=== PATIENT | female | born 1950 | race Caucasian/White ===

== ENCOUNTER → 2016-07-17 | Outpatient (REF) | payer BC | END | disposition home or self-care (01) | LOC: M SFHCSACK 07:54 | PROVIDERS: ATTEND Nurse Practitioner Family | DX: E78.5 Hyperlipidemia, unspecified (principal); E55.9 Vitamin D deficiency, unspecified ==

== ENCOUNTER → 2016-10-16 | Outpatient (REF) | payer BC ==
[2016-10-16 16:13] LABS: ALBUMIN 3.8 GM/DL (3.2-5.2); ALBUMIN/GLOBULIN RATIO 1.15 (1.00-1.93); BILIRUBIN,TOTAL 0.4 MG/DL (0.2-1.0); CALCIUM LEVEL 8.8 MG/DL (8.8-10.2); CREATININE FOR GFR 1.18 MG/DL (0.55-1.02); GLOMERULAR FILTRATION RATE 49.2 (>45); POTASSIUM SERUM 4.2 MEQ/L (3.5-5.1); TOTAL PROTEIN 7.1 GM/DL (6.4-8.2)
== END ==
LOC: M SFHCSACK 08:14
PROVIDERS: ATTEND Physician Assistant
DX: E78.2 Mixed hyperlipidemia (principal); K21.9 Gastro-esophageal reflux disease without esophagitis; E83.51 Hypocalcemia

== ENCOUNTER → 2016-10-23 | Outpatient (CLI) | payer BC ==
--- NOTE | 2016-10-23 14:56 | REPMRS ---
Patient History The patient states she has not had a clinical breast exam in over a year. Patient is postmenopausal. Family history of colorectal cancer in paternal grandmother at age 50 or over and breast cancer in daughter at age 42. Cyst aspiration of both breasts. Digital Woman Screen Mammo: October 23, 2016 - Exam #: [id number] Bilateral CC and MLO view(s) were taken. Technologist: Danielle Malloy, Technologist Prior study comparison: April 13, 2014, bilateral bilat screen digital mammo, performed at [facility] ([facility]). FINDINGS: The breast tissue is heterogeneously dense. This may lower the sensitivity of mammography. There has been no change in the appearance of the mammogram from the prior studies. There is a moderate amount of residual fibroglandular tissue which is fairly symmetric. There is no interval development of dominant mass, areas of architectural distortion, or clustered microcalcification typical of malignancy. ASSESSMENT: BI-RADS/ACR category 1 mammogram. Negative. Recommendation Routine screening mammogram in 1 year (for women over age 40). This mammogram was interpreted with the aid of an FDA-approved computer-aided dectection system. Electronically Signed By: Nader Norris MD 10/23/16 [id number]
== END ==
LOC: M WHC 13:59
PROVIDERS: ATTEND Family Medicine
DX: Z12.31 Encounter for screening mammogram for malignant neoplasm of breast (principal); Z78.0 Asymptomatic menopausal state; Z80.3 Family history of malignant neoplasm of breast; Z80.0 Family history of malignant neoplasm of digestive organs

== ENCOUNTER → 2017-07-26 | Outpatient (REF) | payer BC ==
[2017-07-26 14:34] LABS: BASO # 0.1 10^3/uL (0.0-0.2); BASO % 1.3 % (0.0-1.0); EOS # 0.2 10^3/uL (0.0-0.50); EOS % 2.2 % (0.0-3.0); HEMOGLOBIN 13.7 g/dl (12.0-16.0); IMMATURE GRANULOCYTE % 0.1 % (0-3.0); LYMPH # 1.5 10^3/uL (1.5-4.5); LYMPH % 22.3 % (24.0-44.0); MEAN CORPUSCULAR HEMOGLOBIN 30.8 pg (27.0-33.0); MEAN CORPUSCULAR HGB CONC 32.6 g/dl (32.0-36.5); MEAN CORPUSCULAR VOLUME 94.4 fl (80.0-96.0); MONO # 0.4 10^3/uL (0.0-0.8); MONO % 6.1 % (0.0-5.0); NEUTROPHILS # 4.5 10^3/uL (1.8-7.7); PLATELET COUNT, AUTOMATED 227 10^3/uL (150-450); RED BLOOD COUNT 4.45 10^6/uL (4.00-5.40); RED CELL DISTRIBUTION WIDTH 12.1 % (11.5-14.5); WHITE BLOOD COUNT 6.7 10^3/uL (4.0-10.0)
[2017-07-26 14:50] LABS: TOTAL 25(OH) VITAMIN D 30.9 NG/ML (30.0-100.0)
[2017-07-26 15:29] LABS: ALBUMIN 3.9 GM/DL (3.2-5.2); ALBUMIN/GLOBULIN RATIO 1.18 (1.00-1.93); ALKALINE PHOSPHATASE 52 U/L (45-117); ALT/SGPT 26 U/L (12-78); ANION GAP 8 MEQ/L (8-16); AST/SGOT 17 U/L (7-37); BILIRUBIN,TOTAL 0.7 MG/DL (0.2-1.0); BLOOD UREA NITROGEN 18 MG/DL (7-18); CALCIUM LEVEL 8.7 MG/DL (8.8-10.2); CARBON DIOXIDE LEVEL 29 MEQ/L (21-32); CHLORIDE LEVEL 106 MEQ/L (98-107); CHOLESTEROL LEVEL 204 MG/DL (<200); CREATININE FOR GFR 1.07 MG/DL (0.55-1.30); FREE T4 0.87 NG/DL (0.76-1.46); GLUCOSE, FASTING 83 MG/DL (70-100); HDL CHOLESTEROL 62 MG/DL (>40); LDL CHOLESTEROL 105.8 MG/DL (<100); NON-HDL-C 142 MG/DL; POTASSIUM SERUM 4.1 MEQ/L (3.5-5.1); SODIUM LEVEL 143 MEQ/L (136-145); TOTAL PROTEIN 7.2 GM/DL (6.4-8.2); TRIGLYCERIDES LEVEL 181 MG/DL (<150)
== END ==
LOC: M SFHCSACK 08:03
DX: I10 Essential (primary) hypertension (principal); E78.2 Mixed hyperlipidemia; Z13.29 Encounter for screening for other suspected endocrine disorder; E55.9 Vitamin D deficiency, unspecified

== ENCOUNTER → 2017-11-04 | Outpatient (REF) | payer BC ==
[2017-11-04 13:39] LABS: BASO # 0.1 10^3/uL (0.0-0.2); BASO % 0.9 % (0.0-1.0); EOS # 0.1 10^3/uL (0.0-0.50); HEMATOCRIT 41.7 % (36.0-47.0); HEMOGLOBIN 13.7 g/dl (12.0-15.5); IMMATURE GRANULOCYTE % 0.2 % (0-3.0); LYMPH # 1.6 10^3/uL (1.5-4.5); LYMPH % 24.8 % (24.0-44.0); MEAN CORPUSCULAR HEMOGLOBIN 31.4 pg (27.0-33.0); MEAN CORPUSCULAR HGB CONC 32.9 g/dl (32.0-36.5); MEAN CORPUSCULAR VOLUME 95.4 fl (80.0-96.0); MONO # 0.6 10^3/uL (0.0-0.8); MONO % 8.5 % (0.0-5.0); NEUTROPHILS # 4.1 10^3/uL (1.8-7.7); NEUTROPHILS % 63.6 % (36.0-66.0); PLATELET COUNT, AUTOMATED 222 10^3/uL (150-450); RED BLOOD COUNT 4.37 10^6/uL (4.00-5.40); RED CELL DISTRIBUTION WIDTH 12.2 % (11.5-14.5); WHITE BLOOD COUNT 6.5 10^3/uL (4.0-10.0)
[2017-11-04 13:58] LABS: ALBUMIN 3.9 GM/DL (3.2-5.2); ALBUMIN/GLOBULIN RATIO 1.15 (1.00-1.93); ALKALINE PHOSPHATASE 52 U/L (45-117); ALT/SGPT 27 U/L (12-78); ANION GAP 5 MEQ/L (8-16); AST/SGOT 16 U/L (7-37); BILIRUBIN,TOTAL 0.5 MG/DL (0.2-1.0); BLOOD UREA NITROGEN 18 MG/DL (7-18); CARBON DIOXIDE LEVEL 29 MEQ/L (21-32); CHLORIDE LEVEL 107 MEQ/L (98-107); CHOLESTEROL LEVEL 198 MG/DL (<200); CHOLESTEROL RISK RATIO 3.666 (<5); CREATININE FOR GFR 1.13 MG/DL (0.55-1.30); GLOMERULAR FILTRATION RATE 51.6 (>45); GLUCOSE, FASTING 87 MG/DL (70-100); HDL CHOLESTEROL 54 MG/DL (>40); LDL CHOLESTEROL 102.2 MG/DL (<100); NON-HDL-C 144 MG/DL; POTASSIUM SERUM 4.4 MEQ/L (3.5-5.1); SODIUM LEVEL 141 MEQ/L (136-145); TOTAL PROTEIN 7.3 GM/DL (6.4-8.2); TRIGLYCERIDES LEVEL 209 MG/DL (<150)
== END ==
LOC: M SFHCPLAZ 09:13
DX: I10 Essential (primary) hypertension (principal); E78.2 Mixed hyperlipidemia; D53.9 Nutritional anemia, unspecified
CPT/HCPCS: 80053

== ENCOUNTER → 2018-07-26 | Outpatient (CLI) | payer MEDICARE ==
[2018-07-26 12:59] LABS: BASO # 0.1 10^3/uL (0.0-0.2); BASO % 1.6 % (0.0-1.0); EOS # 0.2 10^3/uL (0.0-0.50); HEMATOCRIT 41.2 % (36.0-47.0); HEMOGLOBIN 13.7 g/dl (12.0-15.5); LYMPH % 30.8 % (24.0-44.0); MEAN CORPUSCULAR HEMOGLOBIN 30.9 pg (27.0-33.0); MEAN CORPUSCULAR HGB CONC 33.3 g/dl (32.0-36.5); MONO # 0.5 10^3/uL (0.0-0.8); MONO % 7.1 % (0.0-5.0); NEUTROPHILS # 3.6 10^3/uL (1.8-7.7); NEUTROPHILS % 57.3 % (36.0-66.0); PLATELET COUNT, AUTOMATED 231 10^3/uL (150-450); RED BLOOD COUNT 4.43 10^6/uL (4.00-5.40); WHITE BLOOD COUNT 6.3 10^3/uL (4.0-10.0)
[2018-07-26 13:14] LABS: ALBUMIN 3.8 GM/DL (3.2-5.2); BILIRUBIN,TOTAL 0.6 MG/DL (0.2-1.0); CALCIUM LEVEL 8.9 MG/DL (8.8-10.2); CHOLESTEROL RISK RATIO 3.94 (<5); CREATININE FOR GFR 1.11 MG/DL (0.55-1.30); GLOMERULAR FILTRATION RATE 52.5 (>45); POTASSIUM SERUM 4.3 MEQ/L (3.5-5.1); TOTAL 25(OH) VITAMIN D 26.6 NG/ML (30.0-100.0); TOTAL PROTEIN 6.9 GM/DL (6.4-8.2)
== END ==
LOC: M WUC 08:38
PROVIDERS: ATTEND Family Medicine
DX: I10 Essential (primary) hypertension (principal); E78.2 Mixed hyperlipidemia; E55.9 Vitamin D deficiency, unspecified

== ENCOUNTER → 2018-10-26 | Outpatient (REF) | payer MEDICARE ==
[2018-10-26 14:19] LABS: BASO # 0.1 10^3/uL (0.0-0.2); EOS # 0.1 10^3/uL (0.0-0.50); EOS % 1.9 % (0.0-3.0); HEMATOCRIT 42.6 % (36.0-47.0); MEAN CORPUSCULAR HEMOGLOBIN 30.8 pg (27.0-33.0); MEAN CORPUSCULAR HGB CONC 32.9 g/dl (32.0-36.5); MEAN CORPUSCULAR VOLUME 93.8 fl (80.0-96.0); MONO # 0.5 10^3/uL (0.0-0.8); MONO % 7.7 % (0.0-5.0); NEUTROPHILS # 4.2 10^3/uL (1.8-7.7); NEUTROPHILS % 60.3 % (36.0-66.0); PLATELET COUNT, AUTOMATED 241 10^3/uL (150-450); RED BLOOD COUNT 4.54 10^6/uL (4.00-5.40); WHITE BLOOD COUNT 6.9 10^3/uL (4.0-10.0)
[2018-10-26 14:48] LABS: ALBUMIN 3.6 GM/DL (3.2-5.2); BILIRUBIN,TOTAL 0.6 MG/DL (0.2-1.0); CALCIUM LEVEL 8.4 MG/DL (8.8-10.2); CHOLESTEROL RISK RATIO 3.792 (<5); CREATININE FOR GFR 1.19 MG/DL (0.55-1.30); FREE T4 0.95 NG/DL (0.76-1.46); GLOMERULAR FILTRATION RATE 48.5 (>45); POTASSIUM SERUM 4.4 MEQ/L (3.5-5.1); THYROID STIMULATING HORMONE 2.18 uIU/ML (0.358-3.740); TOTAL PROTEIN 7.3 GM/DL (6.4-8.2)
[2018-10-26 14:50] LABS: TOTAL 25(OH) VITAMIN D 52.4 NG/ML (30.0-100.0)
== END ==
LOC: M SFHCSACK 09:46
PROVIDERS: ATTEND Physician Assistant
DX: Z13.29 Encounter for screening for other suspected endocrine disorder (principal); I10 Essential (primary) hypertension; E78.2 Mixed hyperlipidemia; E55.9 Vitamin D deficiency, unspecified

== ENCOUNTER → 2019-05-05 | Outpatient (REF) | payer MEDICARE ==
[2019-05-05 13:25] LABS: BASO # 0.1 10^3/uL (0.0-0.2); BASO % 1.1 % (0.0-1.0); EOS # 0.1 10^3/uL (0.0-0.5); EOS % 1.8 % (0.0-3.0); HEMATOCRIT 43.7 % (36.0-47.0); HEMOGLOBIN 14.3 g/dl (12.0-15.5); LYMPH # 1.7 10^3/uL (1.5-5.0); LYMPH % 23.8 % (24.0-44.0); MEAN CORPUSCULAR HEMOGLOBIN 31.4 pg (27.0-33.0); MEAN CORPUSCULAR HGB CONC 32.7 g/dl (32.0-36.5); MONO # 0.5 10^3/uL (0.0-0.8); MONO % 6.4 % (0.0-5.0); NEUTROPHILS # 4.8 10^3/uL (1.5-8.5); NEUTROPHILS % 66.8 % (36.0-66.0); PLATELET COUNT, AUTOMATED 234 10^3/uL (150-450); RED BLOOD COUNT 4.55 10^6/uL (4.00-5.40); WHITE BLOOD COUNT 7.1 10^3/uL (4.0-10.0)
[2019-05-05 13:37] LABS: ALBUMIN 3.6 GM/DL (3.2-5.2); BILIRUBIN,TOTAL 1.3 MG/DL (0.2-1.0); CALCIUM LEVEL 8.6 MG/DL (8.8-10.2); CHOLESTEROL RISK RATIO 3.807 (<5); CREATININE FOR GFR 1.17 MG/DL (0.55-1.30); GLOMERULAR FILTRATION RATE 49.3 (>45); POTASSIUM SERUM 4.1 MEQ/L (3.5-5.1); TOTAL PROTEIN 7.1 GM/DL (6.4-8.2)
[2019-05-05 13:41] LABS: TOTAL 25(OH) VITAMIN D 35.1 NG/ML (30.0-100.0)
== END ==
LOC: M SFHCSACK 09:07
PROVIDERS: ATTEND Physician Assistant
DX: I10 Essential (primary) hypertension (principal); E83.51 Hypocalcemia; E78.2 Mixed hyperlipidemia; E55.9 Vitamin D deficiency, unspecified

== ENCOUNTER → 2019-07-24 | Outpatient (CLI) | payer MEDICARE ==
--- NOTE | 2019-07-24 11:56 | REPMRS ---
Patient History The patient states she had a clinical breast exam in July 2019. Family history of colorectal cancer at age 50 or over in paternal grandmother, breast cancer at age 42 in daughter. Cyst aspiration of both breasts. Digital Woman Screen Mammo: July 24, 2019 - Exam #: [id number] Bilateral CC and MLO view(s) were taken. Technologist: Florencia Fallon, Technologist Prior study comparison: October 23, 2016, digital woman screen mammo performed at [facility] and [facility]. April 13, 2014, bilateral bilat screen digital mammo, performed at [facility] ([facility]). November 27, 2011, bilateral digital woman screen mammo, performed at [facility]. FINDINGS: The breast tissue is heterogeneously dense. This may lower the sensitivity of mammography. There is a moderate amount of heterogeneously dense fibroglandular tissue which is fairly symmetric. There is no interval development of dominant mass, architectural distortion, or grouped microcalcification typical of malignancy. There has been no change in the appearance of the mammogram from the prior studies. 3-D tomosynthesis shows no additional findings. Assessment: BI-RADS/ACR category 1 mammogram. Negative Mammogram. Recommendation Routine screening mammogram of both breasts in 1 year (for women over age 40). This patient's Lifetime Breast Cancer RIsk is estimated at 7.4 %. This mammogram was interpreted with the aid of an FDA-approved computer-aided dectection system. Electronically Signed By: Mark Jordan MD 07/24/19 [id number]
== END ==
LOC: M WHC 09:36
PROVIDERS: ATTEND Physician Assistant
DX: Z12.31 Encounter for screening mammogram for malignant neoplasm of breast (principal)

== ENCOUNTER → 2019-11-07 | Outpatient (CLI) | payer MEDICARE ==
[2019-11-07 19:16] LABS: ALBUMIN 3.9 GM/DL (3.2-5.2); PERCENT SATURATION 24.7 % (13.2-45.0)
[2019-11-07 21:13] LABS: HEMOGLOBIN A1c 5.2 %
== END ==
LOC: M PLALAB 12:30
PROVIDERS: ATTEND Orthopaedic Surgery
DX: Z01.818 Encounter for other preprocedural examination (principal); M25.562 Pain in left knee; D63.8 Anemia in other chronic diseases classified elsewhere; M17.10 Unilateral primary osteoarthritis, unspecified knee

== ENCOUNTER → 2019-11-23 | Outpatient (REF) | payer MEDICARE ==
[2019-11-23 17:21] LABS: BASO # 0.1 10^3/uL (0.0-0.2); BASO % 0.9 % (0.0-1.0); EOS # 0.2 10^3/uL (0.0-0.5); EOS % 2.7 % (0.0-3.0); HEMATOCRIT 42.8 % (36.0-47.0); LYMPH % 27.1 % (24.0-44.0); MEAN CORPUSCULAR HEMOGLOBIN 31.1 pg (27.0-33.0); MEAN CORPUSCULAR HGB CONC 32.7 g/dl (32.0-36.5); MEAN CORPUSCULAR VOLUME 95.1 fl (80.0-96.0); MONO # 0.7 10^3/uL (0.0-0.8); MONO % 9.1 % (0.0-5.0); NEUTROPHILS # 4.4 10^3/uL (1.5-8.5); NEUTROPHILS % 59.8 % (36.0-66.0); PLATELET COUNT, AUTOMATED 210 10^3/uL (150-450); WHITE BLOOD COUNT 7.4 10^3/uL (4.0-10.0)
[2019-11-23 17:52] LABS: CALCIUM LEVEL 8.9 MG/DL (8.8-10.2); CREATININE FOR GFR 1.27 MG/DL (0.55-1.30); GLOMERULAR FILTRATION RATE 44.8 (>45); POTASSIUM SERUM 3.8 MEQ/L (3.5-5.1)
[2019-11-23 17:53] LABS: CHOLESTEROL RISK RATIO 4.076 (<5)
== END ==
LOC: M SFHCLERA 14:59
PROVIDERS: ATTEND Family Medicine
DX: I10 Essential (primary) hypertension (principal); E78.2 Mixed hyperlipidemia
CPT/HCPCS: 36415; 80048; 80061; 85025; G0463

== ENCOUNTER → 2022-08-17 | Outpatient (CLI) | payer MEDICARE | LOC: M WHC 07:40 | PROVIDERS: ATTEND Internal Medicine | DX: Z12.31 Encounter for screening mammogram for malignant neoplasm of breast (principal) ==

== ENCOUNTER → 2022-09-07 | Outpatient (REF) | payer MEDICARE ==
[2022-09-07 14:13] LABS: APPEARANCE, URINE CLEAR (CLEAR); BACTERIA, URINE AUTO NEGATIVE (NEGATIVE); BILIRUBIN, URINE AUTO NEGATIVE (NEGATIVE); BLOOD, URINE BLOOD 1+ (NEGATIVE); COLOR, URINE YELLOW (YELLOW); GLUCOSE, URINE (UA) AUTO NEGATIVE (NEGATIVE); KETONE, URINE AUTO NEGATIVE (NEGATIVE); LEUKOCYTE ESTERASE, URINE AUTO NEGATIVE (NEGATIVE); MUCUS, URINE SMALL (NEGATIVE); NITRITE, URINE AUTO NEGATIVE (NEGATIVE); PROTEIN, URINE AUTO NEGATIVE (NEGATIVE); RBC, URINE AUTO 1 /HPF (0-3); SPECIFIC GRAVITY URINE AUTO 1.013 (1.002-1.035); SQUAMOUS EPITHELIAL CELL UR AU 0 /HPF (0-6); UROBILINOGEN, URINE AUTO 0.2 mg/dL (0.0-2.0); WBC, URINE AUTO 0 /HPF (0-3)
== END ==
LOC: M LAB REF 12:24
PROVIDERS: ATTEND Internal Medicine
DX: R31.9 Hematuria, unspecified (principal)

== ENCOUNTER → 2023-09-22 | Outpatient (CLI) | payer MEDICARE | LOC: M RAD 12:48 | PROVIDERS: ATTEND Internal Medicine | DX: N18.9 Chronic kidney disease, unspecified (principal) ==

== ENCOUNTER → 2023-09-23 | Outpatient (CLI) | payer MEDICARE | LOC: M PLAIMG 14:29 | PROVIDERS: ATTEND Internal Medicine | DX: R06.00 Dyspnea, unspecified (principal) ==

== ENCOUNTER → 2023-10-01 | Outpatient (CLI) | payer MEDICARE | LOC: M WHC 13:36 | PROVIDERS: ATTEND Internal Medicine | DX: Z12.31 Encounter for screening mammogram for malignant neoplasm of breast (principal); M81.0 Age-related osteoporosis without current pathological fracture ==

== ENCOUNTER → 2023-10-11 | Outpatient (CLI) | payer MEDICARE | LOC: M ADAMS 15:04 | PROVIDERS: ATTEND Internal Medicine | DX: R06.00 Dyspnea, unspecified (principal) ==

== ENCOUNTER → 2024-01-12 | Outpatient (REF) | payer MEDICARE ==
[2024-01-12 17:57] LABS: BACTERIA, URINE AUTO NEGATIVE (NEGATIVE); CALCIUM OXALATE CRYSTALS SMALL; MUCUS, URINE SMALL (NEGATIVE); RBC, URINE AUTO 1 /HPF (0-3); SQUAMOUS EPITHELIAL CELL UR AU 0 /HPF (0-6); WBC, URINE AUTO 1 /HPF (0-3)
[2024-01-12 18:06] LABS: PERCENT SATURATION 21.3 % (13.2-45.0)
[2024-01-12 18:11] LABS: FERRITIN 130.3 NG/ML (7.3-270.7)
== END ==
LOC: M LAB REF 17:02
PROVIDERS: ATTEND Internal Medicine Nephrology
DX: R31.21 Asymptomatic microscopic hematuria (principal); D63.1 Anemia in chronic kidney disease

== ENCOUNTER → 2024-03-14 | Outpatient (CLI) | payer MEDICARE | LOC: M RAD 10:53 | PROVIDERS: ATTEND Internal Medicine | DX: N28.1 Cyst of kidney, acquired (principal) ==

== ENCOUNTER → 2025-02-20 | Outpatient (CLI) | payer MEDICARE | LOC: M WHC 07:08 | PROVIDERS: ATTEND Internal Medicine | DX: Z12.31 Encounter for screening mammogram for malignant neoplasm of breast (principal); R92.8 Other abnormal and inconclusive findings on diagnostic imaging of breast ==

== ENCOUNTER → 2025-03-13 | Outpatient (CLI) | payer MEDICARE | LOC: M WHC 13:57 | PROVIDERS: ATTEND Internal Medicine | DX: Z12.31 Encounter for screening mammogram for malignant neoplasm of breast (principal); R92.8 Other abnormal and inconclusive findings on diagnostic imaging of breast | CPT/HCPCS: 77065; G0279 ==